=== PATIENT | male | born 1960 | race African-American/Black ===

== ENCOUNTER 2021-02-21 10:37 | Emergency (ER) | payer OTHER ==
[2021-02-21 10:44] VITALS: BP 157/94; PULSE 70; TEMP 98; BMI 29.2
[2021-02-21] MEDS ORDERED: KETOROLAC TROMETHAMINE 30 MG/1 ML VIAL ONE (11:23)
[2021-02-21] MEDS ORDERED: KETOROLAC TROMETHAMINE 30 MG/1 ML VIAL IM ONE (11:23)
[2021-02-21 12:21] LABS: URIC ACID 5.4 mg/dL (2.6-7.2)
[2021-02-21] MEDS ORDERED: COLCHICINE 0.6 MG CAP PO ONE (12:45)
== END 2021-02-21 13:24 | disposition home or self-care (01) ==
LOC: JERFT 10:37
PROC: 3E023GC Introduction of Other Therapeutic Substance into Muscle, Percutaneous Approach (ICD-10-PCS; principal; 2021-02-21)
DX: M10.031 Idiopathic gout, right wrist (principal)
CPT/HCPCS: 36415; 73110-TC-RT-FY; 73130-TC-RT-FY; 84550; 85651; 86140; 99284-25

== ENCOUNTER 2021-06-08 06:13 | Day surgery (SDC) | payer OTHER ==
[2021-06-07 13:00] VITALS: BMI 27.4
[2021-06-08] MEDS ORDERED: MIDAZOLAM HCL 2 MG/2 ML SINGLE DOSE VIAL ONE ×3 (07:50→09:06)
[2021-06-08] MEDS ORDERED: SUCCINYLCHOLINE CHLORIDE 200 MG/10 ML SYRINGE ONE (07:50)
[2021-06-08] MEDS ORDERED: PROPOFOL 20 ML ONE ×2 (07:50)
[2021-06-08] MEDS ORDERED: DEXAMETHASONE SOD PHOSPHATE 10 MG/1 ML VIAL ONE (08:05)
[2021-06-08] MEDS ORDERED: ROPIVACAINE HCL/PF 100 MG/20 ML VIAL ONE (08:05)
[2021-06-08] MEDS ORDERED: BUPIVACAINE HCL 50 ML ONE (08:12)
[2021-06-08] MEDS ORDERED: ceFAZolin SODIUM 1 GM VIAL ONE (08:21)
[2021-06-08] MEDS ORDERED: DEXAMETHASONE SOD PHOSPHATE 4 MG/1 ML VIAL ONE (08:23)
[2021-06-08] MEDS ORDERED: ONDANSETRON 4 MG/2 ML VIAL ONE (08:23)
[2021-06-08 11:00] VITALS: TEMP 97.9
[2021-06-08 11:30] VITALS: BP 139/67; PULSE 68
== END 2021-06-08 12:47 | disposition home or self-care (01) ==
LOC: FASU 06:13
PROVIDERS: ATTEND Orthopaedic Surgery
PROC: 0PBH0ZZ Excision of Right Radius, Open Approach (ICD-10-PCS; 2021-06-08)
PROC: 01B60ZZ Excision of Radial Nerve, Open Approach (ICD-10-PCS; 2021-06-08)
PROC: 0PTM0ZZ Resection of Right Carpal, Open Approach (ICD-10-PCS; principal; 2021-06-08 08:37)
DX: M93.1 Kienbock's disease of adults (principal); M19.031 Primary osteoarthritis, right wrist
CPT/HCPCS: 73110-TC-RT-FY; 88304-TC; 94760; J1100

== ENCOUNTER 2022-08-20 14:27 | Observation (INO) | payer BC, OTHER ==
[2022-08-20 14:39] VITALS: BMI 29.2
[2022-08-20 16:48] LABS: BASO % 0.7 % (0-2.0); EOS % 3.3 % (0-4.5); HEMATOCRIT 46.3 % (35.4-49); HEMOGLOBIN 15.6 GM/dL (11.7-16.9); LYMPH % 37.7 % (8-40); MCH 29.7 pg (25.7-33.7); MCHC 33.7 g/dl (32.0-35.9); MEAN CELL VOLUME 88.2 fl (80-96); MEAN PLT VOLUME 8.3 fl (7.5-11.1); NEUT % 47.3 % (42.8-82.8); PLATELET COUNT 214 10^3/uL (134-434); RBC 5.24 M/mm3 (4.00-5.60); RDW 16.1 % (11.9-15.9); WHITE BLOOD COUNT 4.5 K/mm3 (4.0-10.0)
[2022-08-20 17:21] LABS: ALBUMIN 4.2 g/dl (3.4-5.0); BLOOD UREA NITROGEN 20.2 mg/dL (7-18); CALCIUM 9.1 mg/dL (8.5-10.1)
[2022-08-20 17:27] LABS: BILIRUBIN,TOTAL 0.5 mg/dL (0.2-1)
[2022-08-20] MEDS ORDERED: ACETAMINOPHEN 325 MG TABLET (FP) PO ONE (17:43)
[2022-08-20] MEDS ORDERED: ASPIRIN 81 MG CHEWABLE TABLETS PO ONE (17:45)
[2022-08-20] MEDS ORDERED: ASPIRIN 81 MG CHEWABLE TABLETS ONE (17:48)
[2022-08-20] MEDS ORDERED: ACETAMINOPHEN 325 MG TABLET (FP) ONE (17:48)
[2022-08-20 19:46] LABS: MAGNESIUM 2.2 mg/dL (1.8-2.4)
[2022-08-20 19:51] LABS: PHOSPHOROUS 3.6 mg/dL (2.5-4.9)
[2022-08-20] MEDS ORDERED: ACETAMINOPHEN 325 MG TABLET (FP) PO PRN (20:26)
[2022-08-20] MEDS ORDERED: PATIENT'S OWN MEDICATION (NON-FORMULARY) (Meloxicam 15 MG Tablet) PO PRN (20:32)
[2022-08-20] MEDS ORDERED: VALSARTAN 40 MG TABLET PO SCH ×2 (22:00)
[2022-08-20] MEDS ORDERED: ATORVASTATIN CA 40 MG TABLET (FP) PO SCH (22:00)
[2022-08-20] MEDS ORDERED: MONTELUKAST NA 10 MG TABLET PO SCH (22:00)
[2022-08-20] MEDS ORDERED: HYDROCHLOROTHIAZIDE 12.5 MG CAPSULE (FP) PO SCH (22:00)
[2022-08-20] MEDS ORDERED: ATORVASTATIN CA 40 MG TABLET (FP) ONE (22:12)
[2022-08-20] MEDS ORDERED: MONTELUKAST NA 10 MG TABLET ONE (22:13)
[2022-08-20] MEDS ORDERED: VALSARTAN 80 MG TABLET ONE (22:13)
[2022-08-20] MEDS ORDERED: ENOXAPARIN NA (PORCINE) 40 MG/0.4 ML DISP.SYRIN SQ ONE (22:13)
[2022-08-20] MEDS ORDERED: HYDROCHLOROTHIAZIDE 25 MG TABLET (FP) ONE (22:14)
[2022-08-20] MEDS: ENOXAPARIN NA (PORCINE) 40 MG/0.4 ML DISP.SYRIN SQ SCH (22:23)
[2022-08-20] MEDS: HYDROCHLOROTHIAZIDE 12.5 MG CAPSULE (FP) PO SCH (22:24)
[2022-08-21] MEDS: HYDROCHLOROTHIAZIDE 12.5 MG CAPSULE (FP) PO SCH ×2 (05:55→06:00)
[2022-08-21 07:15] LABS: BASO % 1.1 % (0-2.0); EOS % 4.3 % (0-4.5); HEMATOCRIT 46.3 % (35.4-49); HEMOGLOBIN 15.3 GM/dL (11.7-16.9); LYMPH % 34.6 % (8-40); MCH 29.4 pg (25.7-33.7); MCHC 33.1 g/dl (32.0-35.9); MEAN CELL VOLUME 88.8 fl (80-96); MEAN PLT VOLUME 9.1 fl (7.5-11.1); MONO % 11.8 % (3.8-10.2); NEUT % 48.2 % (42.8-82.8); PLATELET COUNT 205 10^3/uL (134-434); RBC 5.22 M/mm3 (4.00-5.60); RDW 15.5 % (11.9-15.9); WHITE BLOOD COUNT 3.9 K/mm3 (4.0-10.0)
[2022-08-21 07:38] LABS: BLOOD UREA NITROGEN 19.9 mg/dL (7-18); CALCIUM 8.9 mg/dL (8.5-10.1)
[2022-08-21 07:39] LABS: ALBUMIN 3.8 g/dl (3.4-5.0); MAGNESIUM 2.4 mg/dL (1.8-2.4)
[2022-08-21 07:42] LABS: PHOSPHOROUS 3.7 mg/dL (2.5-4.9)
[2022-08-21 07:43] LABS: CREATININE 1.1 mg/dL (0.55-1.3); TOT PROT 7.3 g/dl (6.4-8.2)
[2022-08-21 07:44] LABS: BILIRUBIN,TOTAL 0.7 mg/dL (0.2-1)
[2022-08-21] MEDS: ENOXAPARIN NA (PORCINE) 40 MG/0.4 ML DISP.SYRIN SQ SCH (09:51)
[2022-08-21] MEDS ORDERED: LORATADINE 10 MG TABLET PO SCH (10:00)
[2022-08-21 14:41] VITALS: BP 125/84; PULSE 85; RESP 20; TEMP 98.9
== END 2022-08-21 18:00 | disposition home or self-care (01) ==
LOC: JER 14:27 → JERBED 17:31 → J4W 08-21 01:17
PROVIDERS: ADMIT Internal Medicine; ATTEND Internal Medicine
PROC: 3E023GC Introduction of Other Therapeutic Substance into Muscle, Percutaneous Approach (ICD-10-PCS; principal; 2022-08-20)
DX: I10 Essential (primary) hypertension (principal); R07.9 Chest pain, unspecified; R06.02 Shortness of breath; I45.81 Long QT syndrome; M19.90 Unspecified osteoarthritis, unspecified site; Z88.8 Allergy status to other drugs, medicaments and biological substances
CPT/HCPCS: 0241U-QW; 36415; 71046-TC-FY; 78452-TC; 80053; 80061; 83735; 84100; 84439; 84443; 84484; 85025; 93005; 93010; 93017; 93306-TC; 99285-25; A9502; G0378

== ENCOUNTER 2023-08-15 16:30 | Emergency (ER) | payer BC, OTHER ==
[2023-08-15 16:39] VITALS: BP 133/83; PULSE 77; RESP 18; TEMP 98; BMI 30.7
[2023-08-15] MEDS ORDERED: FAMOTIDINE 20 MG/50 ML IVPB 20 MG/50 ML MG IVPB ONE (17:43)
[2023-08-15 18:07] LABS: POTASSIUM 4.3 mmol/L (3.5-5.1)
[2023-08-15 18:09] LABS: CALCIUM 8.8 mg/dL (8.5-10.1)
[2023-08-15 18:10] LABS: ALBUMIN 3.7 g/dl (3.4-5.0); BLOOD UREA NITROGEN 24.7 mg/dL (7-18); MAGNESIUM 2.1 mg/dL (1.8-2.4)
[2023-08-15] MEDS: FAMOTIDINE 20 MG/50 ML IVPB 20 MG in PREMIX 50 IVPB ONE (18:10)
[2023-08-15] MEDS: SODIUM CHLORIDE 1,000 ML IV ONE (18:10)
[2023-08-15 18:11] LABS: BASO % 0.4 % (0-2.0); EOS % 0.5 % (0-4.5); HEMATOCRIT 46.5 % (35.4-49); HEMOGLOBIN 15.9 GM/dL (11.7-16.9); LYMPH % 22.1 % (8-40); MCH 29.8 pg (25.7-33.7); MCHC 34.1 g/dl (32.0-35.9); MEAN CELL VOLUME 87.4 fl (80-96); MEAN PLT VOLUME 8.8 fl (7.5-11.1); PLATELET COUNT 225 10^3/uL (134-434); RBC 5.32 M/mm3 (4.00-5.60); RDW 15.2 % (11.9-15.9); WHITE BLOOD COUNT 8.5 K/mm3 (4.0-10.0)
[2023-08-15 18:14] LABS: BILIRUBIN,TOTAL 0.6 mg/dL (0.2-1); TOT PROT 7.4 g/dl (6.4-8.2)
[2023-08-15 18:15] LABS: INR 1.06 (0.83-1.09); PROTHROMBIN TIME (PATIENT) 12.3 SEC (9.7-13.0)
[2023-08-15 18:17] LABS: ACTIVATED PTT 31.2 SECONDS (25.2-36.5)
[2023-08-15] MEDS ORDERED: ACETAMINOPHEN INJECTION 100 ML IVPB ONE (19:32)
[2023-08-15] MEDS ORDERED: MAG HYDROX/AL HYDROX/SIMETH 30 ML UNIT-DOSE CUP ONE (19:33)
[2023-08-15] MEDS: ACETAMINOPHEN 1000 MG/100 ML BAG IVPB ONE (19:40)
[2023-08-15] MEDS: MAG HYDROX/AL HYDROX/SIMETH 30 ML UNIT-DOSE CUP PO ONE (19:40)
[2023-08-15] MEDS ORDERED: CEPHALEXIN MONOHYDRATE 500 MG CAPSULE (UD) ONE (20:12)
[2023-08-15] MEDS: CEPHALEXIN MONOHYDRATE 500 MG CAPSULE (UD) PO ONE (20:14)
== END 2023-08-15 21:18 | disposition home or self-care (01) ==
LOC: JER 16:30
PROC: 3E033GC Introduction of Other Therapeutic Substance into Peripheral Vein, Percutaneous Approach (ICD-10-PCS; principal; 2023-08-15)
PROC: 3E033NZ Introduction of Analgesics, Hypnotics, Sedatives into Peripheral Vein, Percutaneous Approach (ICD-10-PCS; 2023-08-15)
DX: R10.33 Periumbilical pain (principal); R11.0 Nausea
CPT/HCPCS: 36415; 74177-TC; 80053; 83605; 83690; 83735; 84484; 85025; 85610; 85730; 86850; 86900; 86901; 93005; 93010; 99285-25; J0131; Q9967

== ENCOUNTER 2023-08-22 11:42 | Emergency (ER) | payer OTHER, BC ==
[2023-08-22 11:53] VITALS: TEMP 99; BMI 29.4
[2023-08-22] MEDS: SODIUM CHLORIDE 1,000 ML IV STA (12:35)
[2023-08-22] MEDS ORDERED: ACETAMINOPHEN INJECTION 100 ML IVPB ONE (12:36)
[2023-08-22] MEDS ORDERED: METOCLOPRAMIDE HCL INJECTION 10 MG/2 ML VIAL ONE (12:36)
[2023-08-22] MEDS: METOCLOPRAMIDE HCL INJECTION 10 MG/2 ML VIAL IVPB ONE (12:46)
[2023-08-22] MEDS: ACETAMINOPHEN 1000 MG/100 ML BAG IVPB ONE (12:46)
[2023-08-22 12:47] LABS: BASO % 0.8 % (0-2.0); EOS % 1.3 % (0-4.5); HEMATOCRIT 45.8 % (35.4-49); MCH 28.8 pg (25.7-33.7); MCHC 32.8 g/dl (32.0-35.9); MEAN CELL VOLUME 87.8 fl (80-96); MONO % 7.5 % (3.8-10.2); NEUT % 63.4 % (42.8-82.8); PLATELET COUNT 205 10^3/uL (134-434); RBC 5.21 M/mm3 (4.00-5.60); RDW 15.4 % (11.9-15.9); WHITE BLOOD COUNT 5.7 K/mm3 (4.0-10.0)
[2023-08-22 13:12] LABS: POTASSIUM 4.5 mmol/L (3.5-5.1)
[2023-08-22 13:14] LABS: CALCIUM 9.3 mg/dL (8.5-10.1)
[2023-08-22 13:15] LABS: ALBUMIN 3.9 g/dl (3.4-5.0); BLOOD UREA NITROGEN 15.7 mg/dL (7-18)
[2023-08-22 13:19] LABS: BILIRUBIN,TOTAL 0.2 mg/dL (0.2-1); TOT PROT 7.3 g/dl (6.4-8.2)
[2023-08-22 16:17] VITALS: BP 131/90; PULSE 68; RESP 18
== END 2023-08-22 15:35 | disposition home or self-care (01) ==
LOC: JER 11:42
PROC: 3E033NZ Introduction of Analgesics, Hypnotics, Sedatives into Peripheral Vein, Percutaneous Approach (ICD-10-PCS; principal; 2023-08-22)
PROC: 3E033GC Introduction of Other Therapeutic Substance into Peripheral Vein, Percutaneous Approach (ICD-10-PCS; 2023-08-22)
PROC: 3E0337Z Introduction of Electrolytic and Water Balance Substance into Peripheral Vein, Percutaneous Approach (ICD-10-PCS; 2023-08-22)
DX: G43.909 Migraine, unspecified, not intractable, without status migrainosus (principal); R20.2 Paresthesia of skin
CPT/HCPCS: 36415; 70450-TC; 80053; 85025; 93005; 93010; 99285-25; J0131

== ENCOUNTER 2024-01-27 05:48 | Day surgery (SDC) | payer BC, OTHER ==
[2024-01-27] MEDS ORDERED: BUPIVACAINE HCL/PF 0.25% (2.5MG/ML) 10 ML VIAL ONE (14:28)
[2024-01-27] MEDS ORDERED: HEPARIN NA (PORCINE) 5,000 UNITS/ML 1ML VIAL ONE (14:28)
[2024-01-27] MEDS ORDERED: ROCURONIUM BROMIDE 50 MG/5 ML VIAL ONE (15:37)
[2024-01-27] MEDS ORDERED: PROPOFOL 40 ML ONE (15:37)
[2024-01-27] MEDS ORDERED: MIDAZOLAM HCL 2 MG/2 ML SINGLE DOSE VIAL ONE (15:37)
[2024-01-27] MEDS ORDERED: HYDROmorphone HCl 2 MG/ML VIAL ONE (15:51)
[2024-01-27] MEDS: ceFAZolin SODIUM 1 GM VIAL IVPB ONE (15:55)
[2024-01-27] MEDS: BUPIVACAINE HCL/PF 0.25% (2.5MG/ML) 10 ML VIAL IJ ONE (16:04)
[2024-01-27] MEDS ORDERED: GLYCOPYRROLATE 0.2 MG/1 ML VIAL ONE (18:27)
[2024-01-27] MEDS ORDERED: NEOSTIGMINE METHYLSULFATE 0.5 MG/1 ML - 10 ML MDV ONE (18:27)
[2024-01-27] MEDS ORDERED: PROMETHAZINE HCL 25 MG/1 ML VIAL IVPB PRN (18:54)
[2024-01-27] MEDS ORDERED: oxyCODONE HCL 5 MG TABLET PO PRN ×2 (18:54)
[2024-01-27] MEDS ORDERED: ONDANSETRON 4 MG/2 ML VIAL IVPUSH PRN (18:54)
[2024-01-27] MEDS: ACETAMINOPHEN 1000 MG/100 ML BAG IVPB ONE (19:01)
[2024-01-27] MEDS: LACTATED RINGERS SOLUTION 1,000 ML IV SCH (19:02)
[2024-01-28 03:25] VITALS: BMI 29.9
[2024-01-28] MEDS: ACETAMINOPHEN 500 MG TABLET (FP) PO ONE (10:49)
[2024-01-28 12:47] VITALS: BP 150/79; PULSE 83; RESP 20; TEMP 98.4
== END 2024-01-28 12:55 | disposition home or self-care (01) ==
LOC: JASUSAT 05:48 → JASU-SURG 05:48 → J8W 21:58 → JASUSAT 01-28 12:55
PROVIDERS: ATTEND Surgery
PROC: 8E0W4CZ Robotic Assisted Procedure of Trunk Region, Percutaneous Endoscopic Approach (ICD-10-PCS; 2024-01-27)
PROC: 0WUF4JZ Supplement Abdominal Wall with Synthetic Substitute, Percutaneous Endoscopic Approach (ICD-10-PCS; principal; 2024-01-27 14:50)
DX: K42.9 Umbilical hernia without obstruction or gangrene (principal); M62.08 Separation of muscle (nontraumatic), other site
CPT/HCPCS: 94760; C1781; J0131; J1644